=== PATIENT | male | born 1975 | race Caucasian/White ===

== ENCOUNTER 2021-02-11 21:28 | Emergency (ER) | payer SELFPAY ==
[2021-02-11] MEDS: EPINEPHrine 1 MG/ML SDV IM ONE (21:31)
[2021-02-11] MEDS: diphenhydrAMINE 50 MG Cap PO ONE (21:32)
--- NOTE | 2021-02-11 21:49 | EDM.PDOC ---
ED HPI GENERAL MEDICAL PROBLEM - General Chief Complaint: Allergic Reaction Stated Complaint: HIVES Time Seen by Provider: 02/11/21 21:30 Source of Information: Reports: Patient History Limitations: Reports: No Limitations - History of Present Illness INITIAL COMMENTS - FREE TEXT/NARRATIVE: Patient presents to the emergency department for evaluation of hives. He states he ate a pizza while he was in [place] and started having some itching on the way home. When he got home he was surprised to find hives on most body surfaces, particularly neck and torso. He is also complaining of some lip tingling. He has not had any difficulty breathing and denies any wheezing. He states he has no food allergies that he is aware of and has never had a reaction like this. He does have an allergy to cats but has not had an allergic reaction that has caused anaphylaxis. He has been well recently denies any other concerns or complaints. - Related Data Allergies Allergy/AdvReac Type Severity Reaction Status Date / Time cat dander Allergy Hives Verified 02/11/21 21:47 Home Meds: Home Meds EPINEPHrine [Epipen] 0.3 mg IM ONETIME PRN #1 ml 02/11/21 [Rx] ED ROS ALLERGIC REACTION - Review of Systems Review Of Systems: Comprehensive ROS is negative, except as noted in HPI. ED EXAM GENERAL NO PERIP PULSE - Physical Exam Exam: See Below Exam Limited By: No Limitations General Appearance: Alert, No Apparent Distress, Anxious Eye Exam: Bilateral Eye: PERRL Ears: Normal External Exam Nose: Normal Inspection Throat/Mouth: Normal Inspection, Normal Lips, No Airway Compromise Head: Atraumatic, Normocephalic Neck: Normal Inspection, Full Range of Motion Respiratory/Chest: No Respiratory Distress, Lungs Clear, Normal Breath Sounds, No Accessory Muscle Use Cardiovascular: Regular Rate, Rhythm Extremities: Normal Inspection Skin Exam: Warm, Dry, Intact, Other (Erythematous [id number] lesions on arms, trunk, back, neck and face.) Course - Vital Signs Last Recorded V/S: Last Vital Signs Temp 36.4 C 02/11/21 21:30 Pulse 93 02/11/21 21:30 Resp 20 02/11/21 21:30 BP 134/99 H 02/11/21 21:30 Pulse Ox 96 02/11/21 21:30 - Orders/Labs/Meds Meds: Medications Discontinued Medications Generic Name Dose Route Start Last Admin Trade Name Louis PRN Reason Stop Dose Admin Diphenhydramine HCl 50 mg 02/11/21 21:43 02/11/21 21:32 Diphenhydramine 50 Mg Cap PO 02/11/21 21:44 50 mg ONETIME ONE Administration Diphenhydramine HCl 150 mg 02/11/21 22:00 Diphenhydramine 50 Mg Cap .ROUTE 02/11/21 22:01 .STK-MED ONE Epinephrine HCl 0.3 mg 02/11/21 21:44 02/11/21 21:31 Epinephrine 1 Mg/Ml Sdv IM 02/11/21 21:45 0.3 mg ONETIME ONE Administration - Re-Assessments/Exams Free Text/Narrative Re-Assessment/Exam: This patient presents to the emergency department for evaluation of a red streak on his arm. Approximately 6 this patient presents for evaluation of hives. Signs and symptoms are most consistent with anaphylaxis. He was given epinephrine and his symptoms seem to have stabilized and improved. He was also given 50 mg of Benadryl. He did have a dramatic decrease in his rash and itching. He will be sent home with EpiPen and instructed to continue to use steroids over the next few days. He should return to the emergency department or call 911 should he have further rashes, difficulty breathing, facial or lip swelling, any airway compromise. Given the rapidity of resolution, lack of serious systemic symptoms, lack of respiratory difficulty, and no oral or pharyngeal swelling I will not admit him at this time for anaphylaxis. There are no symptoms of anaphylactic shock. The patient was stable at the time of discharge. 02/11/21 21:47 Departure - Departure Time of Disposition: 22:00 Disposition: Home, Self-Care 01 Condition: Good Clinical Impression: Anaphylaxis - Discharge Information Prescriptions: EPINEPHrine [Epipen] 0.3 mg IM ONETIME PRN #1 ml PRN Reason: Other Instructions: Anaphylactic Reaction, Adult, [id number] Forms: ED Department Discharge Additional Instructions: Discharge home. Benadryl 50mg PO every 6 hours, 3 tablets dispensed in the ER. Take approximately 3:30am. Keep Benadryl available to yourself at all times, keep a couple tabs in your vehicle. Epi pen script sent to the ER. supervisor glycerin epi pen on Saturday at [facility]. If you have to give to yourself come into the ER for evaluation. Return to the ER if you have any strange sensations, mouth tingling and difficulty breathing.
[2021-02-11] MEDS ORDERED: diphenhydrAMINE 50 MG Cap ONE (22:00)
== END 2021-02-11 22:10 | disposition home or self-care (01) ==
LOC: LB.ED 21:28
DX: T78.2XXA Anaphylactic shock, unspecified, initial encounter (principal); Z91.09 Other allergy status, other than to drugs and biological substances
CPT/HCPCS: 96372; 99284; A9270; J0171

== ENCOUNTER 2021-03-31 15:19 | Emergency (ER) | payer SELFPAY ==
[2021-03-31] MEDS ORDERED: Famotidine 20 MG Tab ONE (15:36)
[2021-03-31] MEDS ORDERED: diphenhydrAMINE 25 MG Cap ONE (15:36)
[2021-03-31] MEDS ORDERED: diphenhydrAMINE 25 MG Cap PO ONE (15:39)
[2021-03-31] MEDS ORDERED: Famotidine 20 MG Tab PO ONE (15:39)
[2021-03-31] MEDS ORDERED: predniSONE 1 MG Tab PO ONE (15:40)
[2021-03-31] MEDS ORDERED: predniSONE 10 MG Tab PO ONE (15:42)
== END 2021-03-31 16:34 | disposition home or self-care (01) ==
LOC: LB.ED 15:19
DX: T78.1XXA Other adverse food reactions, not elsewhere classified, initial encounter (principal); Z91.013 Allergy to seafood
CPT/HCPCS: 99283; A9270-GY; J7512